=== PATIENT | female | born 1980 | race Caucasian/White ===

== ENCOUNTER 2020-01-12 21:03 | Emergency (ER) | payer OTHER, SELFPAY ==
--- NOTE | ~2020-01-12 | XR_ITS ---
EXAMINATION: XR lumbar spine 2-3V DATE: 01/12/2020 21:49 INDICATION: Back pain after fall TECHNIQUE: Anteroposterior and lateral views of the lumbar spine, and cone-down lateral view of the l umbosacral junction were obtained. COMPARISON: 08/26/2014 FINDINGS: There is no fracture, dislocation, or subluxation. The vertebral body heights, alignment, a nd intervertebral disc spaces are normal. The paravertebral soft tissues are unremarkable. An IUD is noted. A moderate volume of colonic stool is present. IMPRESSION: 1. No acute osseous abnormality. Reviewed, dictated and finalized at location A. CONDENSER
--- NOTE | ~2020-01-12 | XR_ITS ---
EXAMINATION: XR thoracic spine 3V DATE: 01/12/2020 21:49 INDICATION: Back pain after fall TECHNIQUE: AP, lateral and lateral swimmer's views of the thoracic spine were obtained. COMPARISON: 09/04/2014 FINDINGS: There is subtle dextrocurvature in the midthoracic spine. There is fracture, dislocation, o r subluxation. The vertebral body heights are normal. There is mild loss of intervertebral disc space height in the mid thoracic spine. Small degenerative osteophytes project from the anterior endplates of multiple vertebral bodies. IMPRESSION: 1. Mild thoracic spondylosis without acute findings. Reviewed, dictated and finalized at location A. SED POULTRY GRADER
[2020-01-12 21:23] VITALS: BP 116/66; PULSE 85; RESP 18; TEMP 36.2; O2SAT 99
--- NOTE | 2020-01-12 21:31 | ED.WOUNDLAC ---
HPI - Wound/Laceration General Chief Complaint: Wound/Laceration Stated Complaint: R elbow lac Time Seen by Provider: 01/12/20 21:26 Source: patient and RN notes reviewed Mode of arrival: ambulatory Limitations: no limitations History of Present Illness HPI narrative: Pt is a 39 y/o female presenting to the ED c/o laceration. Pt reports she fell down an entire flight of stairs today at 1700 which caused a laceration to her rt forearm. Pt also reports chronic back pain. Pt states her last Tetanus shot was 2 years ago. Onset (ago): hour(s) (4.5) Extremity Location: Left: forearm Place: home Associated symptoms: none Related Data Allergies Allergy/AdvReac Type Severity Reaction Status Date / Time No Known Allergies Allergy Unverified 07/24/18 16:06 Review of Systems Review of Systems: All systems reviewed & are unremarkable except as noted in HPI and below Musculoskeletal: Musculoskeletal: Reports back pain (Chronic) Integumentary/Breasts: Skin/Breast: Reports other (Rt forearm laceration) [facility] Past Medical History Medical History Ankle fracture Surgical History Surgical History H/O breast augmentation Family History Family History Father Family history of diabetes mellitus in first degree relative Social History Social History Alcohol intake: never Exam Const: General: cooperative, no acute distress and alert Nutritional Appearance: well nourished Orientation/consciousness: patient oriented x3 Limitations: no limitations HENMT: Mouth: Yes lip normal and Yes moist mucous membranes Resp: Effort & Inspection: normal respiratory effort Auscultation: clear to auscultation bilaterally Cardio: Rate: regular rate Rhythm: regular rhythm GI: GI Palp: Yes Soft to palpation and No Tenderness to palpation present (GI) Auscultation: normal bowel sounds Back/Spine/Pelvis: Thoracic/Lumbar Spine: thoraco-lumbar spasm, thoracic spinal tenderness and lumbar spinal tenderness Skin: General skin exam: normal color Neuro: General: patient oriented x3 Cognition (Neuro): normal cognition Speech: normal speech Extrem: General: normal to inspection, full ROM and no clubbing, cyanosis or edema Right upper extremity: elbow/forearm laceration forearm proximal posterior flap, with foreign body present (carpet fibers), with motor nerve function intact and with sensation intact Psych: Mental Status: mental status grossly normal Affect: normal affect Attitude: cooperative Course Course Emergency Course: Patient with large flap laceration of her forearm after falling down stairs. Patient with exacerbation of chronic low back pain. X-rays unremarkable. Wound repaired. Patient given wound care precautions and advised to follow-up with primary care for suture removal. Vital Signs Vital signs: Vital Signs Temperature 97.2 F L 01/12/20 21:23 Pulse Rate 85 01/12/20 21:23 Respiratory Rate 18 01/12/20 21:23 Blood Pressure 116/66 01/12/20 21:23 Pulse Oximetry 99 01/12/20 21:23 Temperature 97.2 F L 01/12/20 21:23 Pulse Rate 85 01/12/20 21:23 Respiratory Rate 18 01/12/20 21:23 Blood Pressure 116/66 01/12/20 21:23 Pulse Oximetry 99 01/12/20 21:23 Procedures Laceration Laceration 1: Date: 01/12/20 Time: 23:00 Site: upper extremity (forearm) Side (If applicable): right Size (cm): 15 Description: flap Depth: simple, single layer (through subcutaneous tissue) Local Anesthetic: lidocaine 2% Amount of anesthesia used (mL): 15 Pre-repair: wound explored, irrigated extensively (by nurse with NS over 1 liter) and wound margins revised (trimmed one small flap of skin) ====== Skin Level ====== Skin layer closed with: prolene Size (cm): 4-0
--- NOTE | 2020-01-12 22:16 | PC.NURSE ---
Patient's arm submersed in NS per verbal order from Dr Benito, sterile basin used.
[2020-01-12] MEDS: KETOROLAC (*BKC) 60 MG/2 ML VIAL IM (22:30)
[2020-01-12 23:28] VITALS: BP 126/78; PULSE 76; RESP 16; O2SAT 98
== END 2020-01-12 23:29 | disposition home or self-care (01) ==
PROVIDERS: Emergency Provider Emergency Medicine
DX: S51.811A Laceration without foreign body of right forearm, initial encounter (principal); W10.9XXA Fall (on) (from) unspecified stairs and steps, initial encounter
CPT/HCPCS: 12005; 12045; 72072; 72100; 96372; 99283; J1885

== ENCOUNTER 2024-07-02 02:11 | Day surgery (SDC) | payer OTHER, SELFPAY ==
[2024-07-02 13:49] VITALS: BP 129/84; PULSE 98; RESP 19; TEMP 36.2; O2SAT 100
[2024-07-02 13:54] LABS: BEDSIDEPREGUCG Negative
[2024-07-02] MEDS: LACTATED RINGERS 1,000 ML 150 ML IV CONT (14:01)
--- NOTE | 2024-07-02 14:47 | WPDHPUPDATE1 ---
History and Physical Update Update Date/Time: 07/02/24 14:47 History and Physical has been reviewed, including an updated exam of the patient. There are NO changes in the patient's condition. Risks, benefits, and alternatives have been discussed and questions answered. Patient agrees to proceed with procedure.
[2024-07-02 15:01] VITALS: BP 105/77; PULSE 91; RESP 27; O2SAT 100
--- NOTE | 2024-07-02 15:02 | WPDANESEPPF ---
Anes - Initial Pre Proc Eval Procedure: Operation Date: 07/02/24 15:30 Proposed Procedures p Esophagogastroduodenoscopy - Ronald Oropeza MD Date/Time: 07/02/24 15:02 Surgeon: Ronald Oropeza MD Pre Op Diagnosis: GERD w/o esophagitis Patient Data Age: 43 Gender: F Height: 1.65 m Weight: 76 kg Last Vital Signs Temp 97.2 F L 07/02/24 13:49 Pulse 98 07/02/24 13:49 Resp 19 07/02/24 13:49 BP 129/84 07/02/24 13:49 Pulse Ox 100 07/02/24 13:49 O2 Del Method Room Air 07/02/24 13:49 Allergies Allergy/AdvReac Type Severity Reaction Status Date / Time No Known Allergies Allergy Verified 07/02/24 13:48 Home Medications Medication Instructions Recorded Confirmed Type bupropion HCl 150 mg 24 hr tablet, 150 mg PO DAILY 05/06/24 06/18/24 History extended release levonorgestrel 21 mcg/24 hr (up to 1 device intrauterine ONCE 05/06/24 06/18/24 History 8 years) 52 mg intrauterine device (Mirena) omeprazole 40 mg capsule,delayed 40 mg PO DAILY 05/06/24 06/18/24 History release famotidine 10 mg tablet 10 mg PO DAILY 06/04/24 06/18/24 History semaglutide 3 mg tablet (Rybelsus) 3 mg PO DAILY 06/04/24 06/18/24 History atomoxetine 25 mg capsule 25 mg PO DAILY 06/18/24 06/18/24 History atomoxetine 40 mg capsule 40 mg PO QAM 06/18/24 06/18/24 History phentermine 37.5 mg tablet 37.5 mg PO DAILY 06/18/24 06/18/24 History Laboratory Tests 07/02/24 13:52 POC Urine HCG, Qual Negative POC Ur Preg QC Yes Patient hx anesthesia problems: none Family hx anesthesia problems: none Results Review: All pre-operative results and documents have been reviewed as part of the pre-operative evaluation. 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 Surgical History Surgical History H/O breast augmentation H/O gynecological procedure Mirena IUD insertion 10/29/12 Mirena IUD removal(displaced) 10/29/12 Mirena IUD insertion 12/24/12 Mirena IUD removal/reinsertion 03/09/18 H/O liposuction of abdomen History of ankle surgery History of hysteroscopy D & C Family History Family History Father Family history of diabetes mellitus in first degree relative Grandparent Carcinoma of colon Mother Graves disease Social History Social History Smoking status: Never smoker Alcohol intake: current Substance use: former Substance use type: crack/cocaine Living arrangements: with family Occupation/Education: occupation Gender identity (if verbalized by the patient): Female Spiritual care concerns: No Anes - Eval Final PreProcedure Day of Procedure 07/02/24 15:02 Patient weight: overweight Heart: regular rate and rhythm Lungs: clear to auscultation Airway: Mallampati scale class II Neurological: alert and oriented Last oral intake: >/= 8 hours ASA classification: II Emergent: no Anesthetic plan: proceed Anesthesia type and monitoring: general GIVS and standard monitoring Results Review: All pre-operative results and documents have been reviewed as part of the pre-operative evaluation. GERD, pt on GLP1, off for 3 days without symptoms. Informed Consent: The patient's anesthetic plan and its attendant risks and benefits were discussed with the patient/family/POA. Questions were solicited and answers provided to the satisfaction of the patient/family/POA.
[2024-07-02 15:11] VITALS: BP 109/69; PULSE 83; RESP 16; O2SAT 100
[2024-07-02 15:21] VITALS: BP 119/75; PULSE 84; RESP 19; O2SAT 100
== END 2024-07-02 15:27 | disposition home or self-care (01) ==
PROVIDERS: Anesthesiology; Referring Provider Nurse Practitioner Family; Visit Provider Internal Medicine Gastroenterology
PROC: 0DJ08ZZ Inspection of Upper Intestinal Tract, Via Natural or Artificial Opening Endoscopic (ICD-10-PCS; CPT 43235; principal; 2024-07-02 15:30)
DX: K21.00 Gastro-esophageal reflux disease with esophagitis, without bleeding (principal); K44.9 Diaphragmatic hernia without obstruction or gangrene; Z79.84 Long term (current) use of oral hypoglycemic drugs
CPT/HCPCS: 43239; 88305; J2704; J7120

== ENCOUNTER 2025-04-02 02:16 | Emergency (ER) | payer OTHER, SELFPAY ==
--- OUTSIDE RECORDS SUMMARY | 2025-04-02 02:18 | XMS_ITS | CONTINUITY OF CARE DOCUMENT ---
Author Name james ramirez Address Unknown Organization [facility] Address [address] [place] [address] Phone [phone] Care Team Providers Care Working Foreman Name Role Phone Vincent MISTRY, Carlos Unavailable BRI LYNCH MD, ELISSA Unavailable INSURANCE PROVIDERS Payer name Policy type / Coverage type Korina red libertarian [place] MED[place] (2) Medicaid [id number]
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
[2025-04-02 03:03] LABS: Basophils Absolute Auto 0.1 K/mm3 (0.0-0.1); Basophils Percent Auto 0.8 % (0.2-1.2); Eosinophils Absolute Auto 0.1 K/mm3 (0-0.3); Eosinophils Percent Auto 0.9 % (0-4.4); Hematocrit 34.5 % (37.0-47.0); Hemoglobin 10.3 g/dL (12.0-15.0); Immature Granulocyte Absolute 0.03 K/mm3 (0.00-0.031); Immature Granulocyte Percent A 0.3 % (0-0.5); Lymphocytes Absolute Auto 1.97 K/mm3 (0.9-3.2); Lymphocytes Percent Auto 22.1 % (18.3-44.2); Mean Corpuscular HGB Conc 29.9 g/dl (32-36); Mean Corpuscular Hemoglobin 24.5 pg (26-34); Mean Corpuscular Volume 81.9 fl (80-100); Mean Platelet Volume 8.7 fl (7.4-10.4); Monocytes Absolute Auto 0.7 K/mm3 (0.1-0.6); Monocytes Percent Auto 7.5 % (2.6-8.5); Neutrophils Absolute Auto 6.1 K/mm3 (1.3-6.7); Neutrophils Percent Auto 68.4 % (45.5-73.1); Platelet Count Result 464 k/mm3 (150-375); Red Blood Count 4.21 M/mm3 (4.2-5.4); Red Cell Distribution Width 16.8 % (11.5-14.5); White Blood Count 8.9 K/mm3 (4.5-10.0)
[2025-04-02 03:13] LABS: Alanine Aminotransferase 35 U/L (6-35); Albumin Level 4.3 g/dL (3.5-5.1); Alkaline Phosphatase 100 U/L (38-126); Anion Gap 11 mmol/L (4-12); Aspartate Amino Transferase 43 U/L (14-36); Bilirubin,Total 0.4 mg/dL (0.2-1.3); Blood Urea Nitrogen 16 mg/dL (7-17); Carbon Dioxide 23 mmol/L (22-30); Chloride 102 mmol/L (98-107); Estimated Glomerular Filt Rate > 60; Glucose 112 mg/dL (65-110); Sodium 136 mmol/L (137-145)
[2025-04-02 03:14] LABS: Ethanol < 10 mg/dL (<10)
--- OUTSIDE RECORDS SUMMARY | 2025-04-02 03:24 | XMS_ITS | CONTINUITY OF CARE DOCUMENT ---
Author Name james ramirez Address Unknown Organization [facility] Address [address] [place] [address] Phone [phone] Care Team Providers Care Wood Polisher Name Role Phone Vincent MISTRY, Carlos Unavailable [phone] BRI LYNCH MD, ELISSA Unavailable INSURANCE PROVIDERS Payer name Policy type / Coverage type Korina red libertarian [place] (2) Medicaid [id number]
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
[2025-04-02 03:26] LABS: Band Neutrophils Percent 0 % (0-6)
[2025-04-02 03:27] LABS: Anisocytosis 1+; Hypochromasia 1+; Platelet Estimate Increased (Adequate); Schistocytes None Seen
[2025-04-02 03:38] LABS: Free T4 Free Thyroxine 1.26 ng/dL (0.78-2.19); Influenza A QL RT-PCR Negative (Negative); Influenza B QL RT-PCR Negative (Negative); RSV RNA, RT-PCR Negative (Negative); SARS-CoV-2 RNA PCR Negative (Negative)
[2025-04-02 04:07] LABS: BEDSIDEPREGUCG Negative (Negative)
[2025-04-02] MEDS: POTASSIUM CHLORIDE 20 MEQ PACKET (FOR LIQUID) 40 MEQ PO (04:10)
[2025-04-02] MEDS: diazePAM INJ (*CRX) 10 MG/2 ML SYRINGE 5 MG IM (04:11)
[2025-04-02 04:12] LABS: Add Urine Microscopic? YES; Appearance Urine Turbid (Clear); Bacteria Urine 2+ /hpf; Bilirubin Urine Negative (Negative); Blood Urine 2+ (Negative); Budding Yeast Urine Present /hpf; Color Urine Yellow (Yellow); Glucose Urine UA Negative (Negative); Ketones Urine 1+ mg/dL (Negative); Leukocyte Esterase Ur 1+ LEU/UL (Negative); Mucus Urine Present /lpf; Nitrate Urine Negative (Negative); Protein Urine Trace mg/dL (Negative); RBC Urine 0-2 /hpf (0-2); Specific Grav Ur 1.024 (1.001-1.035); Squamous Epithelial Cell Urine Moderate /hpf (Few)
[2025-04-02 04:16] LABS: Barbiturate Screen Urine Negative (Negative); Benzodiazepines Screen Urine Negative (Negative)
[2025-04-02 04:17] LABS: Cannabinoid Screen Urine Positive (Negative); Cocaine Screen Urine Negative (Negative); Methadone Screen Urine Negative (Negative); Opiate Screen Urine Negative (Negative); Phencyclidine Screen Urine Negative (Negative)
[2025-04-02 04:47] LABS: Amphetamine Screen Urine Positive (Negative)
--- NOTE | 2025-04-02 07:13 | PC.NURSE ---
Crisis here to evaluate.
--- NOTE | 2025-04-02 09:09 | PC.NURSE ---
Spoke with Mayte from [facility]. They will accept pt. We are to call report at 1030 and then arrange for transport.
--- NOTE | 2025-04-02 09:55 | PC.NURSE ---
Up in room. Pt. frequently told to stay in her room. Pt states [facility]'m not [facility] . Pt informed of plan to transport to [facility].
[2025-04-02] MEDS: OLANZapine 10 MG INJ VIAL 5 MG IM (10:05)
[2025-04-02] MEDS: WATER, STERILE FOR INJECTION 10 ML VIAL XX (10:05)
[2025-04-02 10:43] VITALS: BP 113/75; PULSE 90; RESP 20; TEMP 36.8; O2SAT 99
[2025-04-02] MEDS: PANTOPRAZOLE 40 MG TABLET PO (11:30)
--- NOTE | 2025-04-02 12:05 | PC.NURSE ---
Called Mikhail at [phone] and gave MILTON Aldana update that ems had arrived here to take pt over to facility. all questions answered.
== END 2025-04-02 12:03 ==
PROVIDERS: Emergency Provider Emergency Medicine
DX: F15.151 Other stimulant abuse with stimulant-induced psychotic disorder with hallucinations (principal); Z11.52 Encounter for screening for COVID-19
CPT/HCPCS: 36415; 80053; 80307; 81001; 81025; 82077; 84439; 84443; 85025; 87637; 96372; 99284; 99285; A9270; J2359; J3360